=== PATIENT | female | born 1955 | race Caucasian/White ===

== ENCOUNTER 2023-05-19 13:54 | Emergency (ER) | payer MEDICARE, OTHER ==
[~2023-05-19] VITALS: Ht 167.6 cm; Wt 70.3 kg
[2023-05-19] MEDS ORDERED: ADENOSINE 6 MG/2 ML SYR IV ONE ×2 (14:03→16:30)
[2023-05-19 14:16] LABS: BASOPHILS # (AUTO) 0.1 K/UL (0.0-0.2); BASOPHILS % (AUTO) 0.7 % (0.0-2.0); EOSINOPHILS # (AUTO) 0.1 K/uL (0.0-0.7); EOSINOPHILS % (AUTO) 0.9 % (0.0-7.0); HEMATOCRIT 38.6 % (31.2-41.9); HEMOGLOBIN 12.8 g/dL (10.9-14.3); LYMPHOCYTES # (AUTO) 2.3 K/uL (0.8-4.8); LYMPHOCYTES % (AUTO) 33.9 % (20.5-51.5); MEAN CORPUSCULAR HEMOGLOBIN 31.3 uug (24.7-32.8); MEAN CORPUSCULAR HGB CONC 33 g/dL (32.3-35.6); MEAN CORPUSCULAR VOLUME 94.7 fL (75.5-95.3); MONOCYTES # (AUTO) 0.7 K/uL (0.1-1.30); MONOCYTES % (AUTO) 9.7 % (0.0-11.0); NEUTROPHILS # (AUTO) 3.8 K/uL (1.8-8.9); NEUTROPHILS % (AUTO) 54.8 % (38.5-71.5); PLATELET COUNT (AUTO) 310 K/uL (179-408); RED BLOOD CELL COUNT(AUTO) 4.08 MIL/uL (3.63-4.92); RED CELL DISTRIBUTION WIDTH 14.6 % (12.3-17.7); WHITE BLOOD COUNT (AUTO) 6.9 K/uL (3.8-11.8)
[2023-05-19 14:22] LABS: CALCIUM 9.3 mg/dL (8.5-10.1); CARBON DIOXIDE 21 mmol/L (21-32); CHLORIDE 103 mmol/L (98-107); CREATININE 1.2 mg/dL (0.6-1.3); GLUCOSE 130 mg/dL (74-106); POTASSIUM 4.3 mmol/L (3.5-5.1); SODIUM SERUM 136 mmol/L (136-145); UREA NITROGEN, BLOOD 29 mg/dL (7-18)
[2023-05-19 14:24] LABS: DIFFERENTIAL COMMENT 1
[2023-05-19 16:26] VITALS: BP 128/77; O2SAT 99
== END 2023-05-19 15:30 | disposition home or self-care (01) ==
LOC: ER 13:54
DX: I47.10 Supraventricular tachycardia, unspecified (principal); R00.2 Palpitations; I10 Essential (primary) hypertension
CPT/HCPCS: 99291; 92960; 71045; 80048; 85025; 84484; 36415; 93005; J0153; J7040; A4606; A4663